=== PATIENT | male | born 1980 | race Hispanic/Latino ===

== ENCOUNTER 2018-08-13 13:08 | Outpatient (CLI) | payer OTHER ==
--- NOTE | 2018-08-14 08:53 | RAD ---
RIGHT FOURTH DIGIT RADIOGRAPHS THREE VIEWS: Date: 08-13-18 Provided Clinical History: Right fourth digit pain status post injury. FINDINGS: No evidence for fracture or other acute osseous abnormality. If there is persistent clinical concern, conservative management and follow up imaging are advised. IMPRESSION: As above. POS: [facility]
== END 2018-08-13 13:09 | disposition home or self-care (01) ==
LOC: BICRAD 13:08
DX: S69.91XA Unspecified injury of right wrist, hand and finger(s), initial encounter (principal)

== ENCOUNTER 2021-06-27 14:15 | Day surgery (SDC) | payer BC, OTHER ==
[2021-06-27] MEDS ORDERED: Dexamethasone 20 MG/5 ML VIAL ONE (15:51)
[2021-06-27] MEDS ORDERED: Ondansetron PF 4 MG/2 ML Vial ONE (15:51)
[2021-06-27] MEDS ORDERED: Lidocaine 1% PF 5 ML VIAL ONE (15:51)
[2021-06-27] MEDS ORDERED: PROPOFOL 200 MG/20 ML VIAL ONE (15:51)
== END 2021-06-27 18:55 | disposition home or self-care (01) ==
LOC: SDC 14:15
PROVIDERS: ATTEND Orthopaedic Surgery Hand Surgery
PROC: 0JBK0ZZ Excision of Left Hand Subcutaneous Tissue and Fascia, Open Approach (ICD-10-PCS; principal; 2021-06-27)
DX: S61.442A Puncture wound with foreign body of left hand, initial encounter (principal); W29.4XXA Contact with nail gun, initial encounter; Y99.0 Civilian activity done for income or pay
CPT/HCPCS: 76000; J1100; J2405; J2704